=== PATIENT | female | born 1990 | race Caucasian/White ===

== ENCOUNTER 2021-08-11 04:39 | Day surgery (SDC) | payer OTHER ==
[2021-08-07 15:42] VITALS: BMI 31.6
[2021-08-11] MEDS ORDERED: PROPOFOL 20 ML ONE ×2 (11:44→13:03)
[2021-08-11] MEDS ORDERED: MIDAZOLAM HCL 2 MG/2 ML SINGLE DOSE VIAL ONE (11:45)
[2021-08-11] MEDS ORDERED: LIDOCAINE HCL 1%, 10 MG/ML (20ML VIAL) ONE (12:08)
[2021-08-11] MEDS ORDERED: ceFAZolin SODIUM 1 GM VIAL IVPB ONE (12:32)
[2021-08-11] MEDS ORDERED: BUPIVACAINE HCL/PF 0.5% (5MG/ML) 10 ML VIAL IJ ONE (12:43)
[2021-08-11] MEDS ORDERED: LIDOCAINE HCL 1%, 10 MG/ML (20ML VIAL) INF ONE (12:43)
[2021-08-11] MEDS ORDERED: DEXAMETHASONE SOD PHOSPHATE 4 MG/1 ML VIAL ONE (13:02)
[2021-08-11] MEDS ORDERED: ceFAZolin SODIUM 1 GM VIAL ONE ×2 (13:03)
[2021-08-11] MEDS ORDERED: ACETAMINOPHEN INJECTION 100 ML IVPB ONE (13:52)
[2021-08-11] MEDS ORDERED: ACETAMINOPHEN 1000 MG/100 ML BAG IVPB ONE (13:55)
[2021-08-11 15:20] VITALS: BP 112/60; PULSE 72; TEMP 98
== END 2021-08-11 15:10 | disposition home or self-care (01) ==
LOC: JASU-SURG 04:39
PROVIDERS: ATTEND Surgery
PROC: 0HB5XZZ Excision of Chest Skin, External Approach (ICD-10-PCS; principal; 2021-08-11 14:00)
DX: L72.3 Sebaceous cyst (principal)
CPT/HCPCS: 81025; 88304-TC